=== PATIENT | female | born 1955 | race Caucasian/White ===

== ENCOUNTER → 2023-12-23 09:19 | Outpatient (REF) | payer MEDICARE, SELFPAY | LOC: HWRAD 09:19 | PROVIDERS: ATTENDING PHYSICIAN Internal Medicine Rheumatology; FAMILY PHYSICIAN Nurse Practitioner Family | DX: M17.0 Bilateral primary osteoarthritis of knee (principal); M25.50 Pain in unspecified joint; M81.0 Age-related osteoporosis without current pathological fracture; Z13.820 Encounter for screening for osteoporosis; Z51.81 Encounter for therapeutic drug level monitoring | CPT/HCPCS: 77080 ==

== ENCOUNTER → 2024-04-05 08:00 | Outpatient (REF) | payer MEDICARE, SELFPAY | LOC: RAD 08:00 | PROVIDERS: ATTENDING PHYSICIAN Internal Medicine Rheumatology; FAMILY PHYSICIAN Nurse Practitioner Family | DX: M54.2 Cervicalgia (principal) | CPT/HCPCS: 72050 ==

== ENCOUNTER → 2024-04-26 07:55 | Outpatient (REF) | payer MEDICARE, SELFPAY | LOC: WDC 07:55 | PROVIDERS: ATTENDING PHYSICIAN Nurse Practitioner Family | DX: Z12.31 Encounter for screening mammogram for malignant neoplasm of breast (principal) | CPT/HCPCS: 77063; 77067 ==

== ENCOUNTER → 2024-10-22 08:04 | Outpatient (REF) | payer MEDICARE, SELFPAY | LOC: RAD 08:04 | PROVIDERS: ATTENDING PHYSICIAN Internal Medicine Rheumatology; FAMILY PHYSICIAN Nurse Practitioner Family | DX: M25.50 Pain in unspecified joint (principal); M25.552 Pain in left hip | CPT/HCPCS: 73030; 73502 ==

== ENCOUNTER 2024-12-27 06:20 | Day surgery (SDC) | payer MEDICARE, SELFPAY | END 2024-12-27 10:09 | disposition home or self-care (01) | LOC: GI 06:20 | PROVIDERS: ATTENDING PHYSICIAN Internal Medicine Gastroenterology | DX: Z12.11 Encounter for screening for malignant neoplasm of colon (principal); K63.5 Polyp of colon; K64.8 Other hemorrhoids; Z86.0101 Personal history of adenomatous and serrated colon polyps | CPT/HCPCS: 45380; 88305 ==

== ENCOUNTER → 2025-05-31 09:56 | Outpatient (REF) | payer MEDICARE, SELFPAY | LOC: RAD 09:56 | PROVIDERS: ATTENDING PHYSICIAN Nurse Practitioner Adult Health | DX: M54.12 Radiculopathy, cervical region (principal) | CPT/HCPCS: 72050 ==

== ENCOUNTER → 2025-07-31 15:05 | Outpatient (REF) | payer MEDICARE, SELFPAY | LOC: RAD 15:05 | PROVIDERS: ATTENDING PHYSICIAN Internal Medicine | DX: M79.661 Pain in right lower leg (principal) | CPT/HCPCS: 93971 ==

== ENCOUNTER → 2025-08-30 15:15 | Outpatient (REF) | payer MEDICARE, SELFPAY | LOC: WDC 15:15 | PROVIDERS: ATTENDING PHYSICIAN Nurse Practitioner Adult Health | DX: Z12.31 Encounter for screening mammogram for malignant neoplasm of breast (principal) | CPT/HCPCS: 77063; 77067 ==

== ENCOUNTER 2025-11-17 06:40 | Emergency (ER) | payer MEDICARE, SELFPAY ==
[2025-11-17 06:41] VITALS: BP 146/93
--- NOTE | 2025-11-17 07:23 | ED.GENMED ---
History of Present Illness
General
Chief Complaint: Headache
Source: patient
Time Seen by Provider: 11/17/25 07:06
History of Present Illness
History of Present Illness:
70-year-old female with no significant past medical history presenting to the emergency department for evaluation of bitemporal sharp stabbing pain that occurs randomly, lasts a few seconds and then resolves but still with a dull aching sensation
that has been ongoing for the last month plus, the last week or so seems to be more intense and occurring more frequently which is why she presented to the ER this morning. Patient has been worked up for neck pain where she was diagnosed with
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 She notes that when she leans forward and extends her neck she does seem to get the increased
sensation in her head. She denies any focal weakness or numbness to her extremities, visual disturbances, URI-like symptoms or any other concerns. Denies any history of similar. Patient did take Tylenol last night without much relief, nothing yet
this morning for the pain.
Past History
Past History
ED Past Medical History: None
ED Past Surgical History: Orthopedic and Other
Social History
Tobacco: Non-smoker
Alcohol: None
Drug: None
Personal:
Living: alone
Review of Systems
Review of Systems
All Other Systems: ROS reviewed and negative except as documented in HPI and ROS
Phy Exam
Physical Exam
Physical Exam:
GENERAL: Alert , in no apparent distress
HEAD: Normocephalic atraumatic, no focal ttp along temporal artery region
EYE: pupils equal and reactive, 3mm bilateral, EOMI
NECK: Supple, FROM, tender trapezius bilateral
ENT: o/p clr, mmm.
CARDIAC: Regular rate and rhythm .
LUNGS: Clear breath sounds bilaterally, no acute respiratory distress, no wheezes/rales/rhonchi
NEUROLOGICAL: Alert and oriented, no focal neuro deficits, ambulatory with a steady gait, SINGH x 4
SKIN: Warm and dry, skin intact.
MUSCULOSKELETAL: No edema, well perfused.
PSYCH: Normal and appropriate interaction.
Scores
Heart Failure Risk
Heart Failure Risk Score: Not Applicable
Heart Score for Chest Pain Patients
STEMI patient?: Not applicable
Withdrawal Assessment of Alcohol
Withdrawal Assessment Completed?: Not applicable
Course
Orders/Labs/Results
Orders:
Orders
11/17/25 07:22
CT Head W/o Iv Contrast Urgent
Comment:
Reason For Exam: bilateral temporal pain
11/17/25 07:33
CRP [C-Reactive Protein] Urgent
Complete Blood Count/With Diff Urgent
Comprehensive Metabolic Panel Urgent
ESR [Erythrocyte Sed Rate] Urgent
11/17/25 07:46
Ibuprofen [Motrin] 600 mg PO NOW STA
11/17/25 07:58
Acetaminophen [Tylenol] 1,000 mg PO NOW STA
Abnormal Lab Results
11/17/25
07:33
RBC 4.04 L 10^6/uL
(4.20-5.40)
MCH 31.4 H pg
(27.0-31.0)
Absolute Monos (auto) 0.7 H 10^3/uL
(0.1-0.6)
Monocytes % 10.7 H %
(1.7-9.3)
Eosinophils % 6.3 H %
(0-6)
11/17/25 07:33
11/17/25 07:33
Vital Signs
Initial and Last Documented VS:
Initial Vital Signs
Temp Pulse Resp BP Pulse Ox
97.8 F 71 16 146/93 96
11/17/25 06:41 11/17/25 06:41 11/17/25 06:41 11/17/25 06:41 11/17/25 06:41
Last Documented Vital Signs
Temp Pulse Resp BP Pulse Ox
97.8 F 71 16 146/93 96
11/17/25 06:41 11/17/25 06:41 11/17/25 06:41 11/17/25 06:41 11/17/25 07:29
MDM/Problems Addressed
Differential Diagnosis Includes:
Tension headache
Migraine headache
Cluster headache
GCA
Trigeminal neuralgia
TMJ disorder
ICH
Malignancy
MDM/Problems Addressed:
70-year-old female presenting to the emergency department for evaluation of bitemporal pain that has been ongoing for the last 1 month or so, had outpatient imaging done on her cervical spine which showed degenerative changes throughout but most
pronounced at C5-C6, has been undergoing physical therapy and had epidural injection but she continues with the neck discomfort and bitemporal pain is what ultimately brought her into the ER. No focal neurologic symptoms. Patient does have
intermittent episodes where she is experiencing sharp pains in the temporal region during my exam but is overall very pleasant and well-appearing. Overall doubt emergent pathology, no clear etiology for symptoms and interestingly having bilateral
pain making a lot of the after mentioned differential diagnoses little less likely. Anticipate need for further outpatient workup with primary care and/or neurology. Will obtain labs and CT imaging here.
*Radiology
Radiology exam reviewed: radiology read reviewed
*Pulse Oximetry
SaO2: 96
Oxygen Mode of Delivery: Room air
Patient hypoxic: no
*Critical Care Note
Total Time (30-74mins, 75-104mins- exclusive of procedures): Not Applicable
Patient Management
Escalation/DeEscalation of care consider admission/obs:
CT negative for any acute intracranial pathologies. Advised outpatient follow-up, discussed return precautions to the ER. Stable for discharge
ED Attending Note
-
Portions of this chart may have been created with voice recognition software.� Occasional wrong word or��sound alike� substitutions may have occurred due to the inherent limitations of voice recognition software.
Discharge Plan
Departure
Patient Disposition: Home (Routine Discharge)
Date of Disposition: 11/17/25
Time of Disposition: 08:23
Patient with high blood pressure during this ER visit?: Yes
Discharge Problem:
Temporal pain
Instructions: Headache, Adult (DC)
Prescriptions:
No Action
multivitamin 1 EACH tablet
1 ea PO DAILY
Ca-D3-mag [id number]-bor [Calcium 600-D3 Plus (mag-zinc)] 1 EACH tablet
1 ea PO DAILY
acetaminophen 325 MG tablet
650 mg PO QID 0RF
aspirin 325 MG tablet,delayed release (DR/EC)
325 mg PO DAILY 0RF
acetaminophen [Tylenol Arthritis] 650 MG tablet extended release
650 mg PO PRN PRN (Reason: pain)
Referrals:
Suzie Mosquera MD [Non-Admitting Privileges, Psychiatry]
Referral Note: Neurology for follow up
PRIVATE,PHYSICIAN [Family Provider, Internal Medicine]
Interventions
Interventions:
*General Assessment Last Done: 11/17/25 06:41
*Neglect/Abuse Screening Last Done: 11/17/25 06:41
[facility] Risk Assessment Tool Last Done: 11/17/25 07:34
*Risk Screen - Suicide (C-SSRS) Last Done: 11/17/25 06:41
*Nursing Disposition Last Done: 11/17/25 08:35
ED- Neurological Assessment Last Done: 11/17/25 07:35
Discharge Date and Time
Discharge Date/Time: 11/17/25 08:35
Print Language: EGYPTIAN
[2025-11-17 07:40] LABS: Hematocrit 37.6 % (37.0-47.0); Hemoglobin 12.7 g/dL (12.0-16.0); Mean Corp Hgb Conc. 33.8 g/dL (33.0-37.0); Mean Corpuscular Volume 93.1 fL (81.0-99.0); Nucleated Red Blood Cells % 0 %; Platelet Count 265 10^3/uL (130-400); Red Cell Dist. Width 12.9 % (11.5-14.5)
[2025-11-17 07:59] LABS: ALT (SGPT) 28 U/L (0-35); AST (SGOT) 36 U/L (14-36); Albumin 4.3 g/dl (3.5-5.0); Alkaline Phosphatase 61 U/L (38-126); Blood Urea Nitrogen 17 mg/dl (7-17); Calcium 9.3 mg/dl (8.4-10.2); Carbon Dioxide 28 mmol/L (22-30); Chloride 104 mmol/L (98-107); Glucose 90 mg/dl (70-99); Potassium 4.1 mmol/L (3.5-5.1); Sodium 137 mmol/L (135-145); Total Protein 6.8 g/dl (6.3-8.2); eGFR > 60.00
[2025-11-17 08:03] LABS: C-Reactive Protein < 5.00 mg/L (0.0-10.00)
[2025-11-17] MEDS: TYLENOL 1000 MG PO (08:04)
== END 2025-11-17 08:35 | disposition home or self-care (01) ==
LOC: EMR 06:40
PROVIDERS: Physician Assistant Medical; EMERGENCY PHYSICIAN Emergency Medicine
DX: R51.9 Headache, unspecified (principal); M47.812 Spondylosis without myelopathy or radiculopathy, cervical region
CPT/HCPCS: 99284; 70450; 80053; 85025; 85652; 86140